=== PATIENT | female | born 1990 | race Caucasian/White ===

== ENCOUNTER 2022-06-05 19:58 | Emergency (ER) | payer MEDICAID ==
[~2022-06-05] VITALS: Ht 172.7 cm; Wt 56.7 kg
[2022-06-05 20:03] VITALS: BP_SYST 122
--- NOTE | 2022-06-05 20:09 | NUR ---
PT HERE FOR LT FACIAL PAIN AND SWELLING TODAY. PT STATED THAT SHE WAS IN THE URGENT CARE YESTERDAY FOR POSS ABSCESS ON HER LT FACE. SHE WAS SENT HOME WITH ANTIBIOTICS (KEFLEX). PT DENIES FEVER, PER PT SHE NOTICED THTA SWELLING GETTING WORST TODAY. DENIES FEVER. PMH;DENIES PT AAOX4, NO SOB NOTED AND NAD. PENDING MD MATHEW
--- NOTE | 2022-06-05 20:15 | NUR ---
MD Saravia at bedside examining pt.
[2022-06-05] MEDS ORDERED: SULF1TAB48 PO (20:26)
[2022-06-05] MEDS ORDERED: CEPH-548 PO (20:26)
[2022-06-05] MEDS ORDERED: SULFAMETHOXAZOLE/TRIMETHOPR DS 1 TABLET PO ONE (20:30)
[2022-06-05 20:38] VITALS: BP_SYST 122
--- NOTE | 2022-06-05 20:41 | NUR ---
Patient given written and verbal discharge instructions and verbalizes understanding. ER MD Saravia discussed with patient the results and treatment provided. Patient in stable condition. ID arm band removed. Rx of ATB therapy sent to pharmacy of choice. Patient educated on pain management and to follow up with PMD. Opportunity for questions provided and answered. Medication side effect fact sheet provided.
== END 2022-06-05 20:38 | disposition home or self-care (01) ==
LOC: SED 19:58
DX: L03.211 Cellulitis of face (principal); R22.0 Localized swelling, mass and lump, head; Z79.899 Other long term (current) drug therapy
CPT/HCPCS: 99283

== ENCOUNTER 2022-06-06 11:06 | Emergency (ER) | payer MEDICAID ==
[~2022-06-06] VITALS: Ht 172.7 cm; Wt 56.7 kg
[~2022-06-06 11:06] MED LIST: CEPH-548 PO; SULF1TAB48 PO
[2022-06-06 11:11] VITALS: BP_SYST 117
[2022-06-06 13:03] VITALS: BP_SYST 117
== END 2022-06-06 13:04 | disposition home or self-care (01) ==
LOC: SED 11:06
DX: H05.012 Cellulitis of left orbit (principal); R51.9 Headache, unspecified; Z79.899 Other long term (current) drug therapy
CPT/HCPCS: 99282

== ENCOUNTER 2022-10-31 07:24 | Emergency (ER) | payer MEDICAID ==
[~2022-10-31] VITALS: Ht 172.7 cm; Wt 55.8 kg
--- NOTE | 2022-10-31 07:35 | NUR ---
Patient to ER bed 05 to gown for evaluation. Side rails up. Report given to QIAN PIERCE.
--- NOTE | 2022-10-31 07:37 | NUR ---
PT CAME HERE FROM HOME, STATES SHE WAS HERE 4/3 FOR BUMP TO RIGHT EYEBROW, RX OF BACTIM GIVEN AND STARTED. PT STATES IT IS GETTING WORSE AND HER RIGHT EYE IS SWOLLEN OF THIS AM. STATES HX OF MRSA. PT IS AMBULATORY, AAOX4, VSS, DENIES VISUAL CHANGES
[2022-10-31 07:38] VITALS: BP_SYST 119
--- NOTE | 2022-10-31 07:40 | NUR ---
ER DR. SIMPSON AT THE BEDSIDE EXAMINING PT
--- NOTE | 2022-10-31 07:45 | NUR ---
Pt brought in by self from home follow up from visit 2 days ago. Chief complaint increased size of eye brow bump and new eyelid swelling to the right eye. Pt denies itchiness, complains of white discharge and throbbing pain of 4/10 pain gradient. Pt states pain was an 8/10 with relieg from OTC ibuprofen. Pt is starting 3 day of ABX Bactrim with compliance. Pt states history of MRSA on 06/19
[2022-10-31 08:02] LABS: BASOPHILS % (AUTO) 0.6 % (0.0-2.0); EOSINOPHILS # (AUTO) 0.1 K/uL (0.0-0.4); EOSINOPHILS % (AUTO) 2.5 % (0.0-4.0); HEMATOCRIT 35.6 % (36-48); LYMPHOCYTES # (AUTO) 1.1 K/uL (1.0-5.5); MEAN CORPUSCULAR HEMOGLOBIN 28 pg (27-31); MEAN CORPUSCULAR HGB CONC 34 % (32-36); MEAN CORPUSCULAR VOLUME 85 fL (79.0-98.0); MONOCYTES # (AUTO) 0.4 K/uL (0.0-1.0); MONOCYTES % (AUTO) 8.2 % (1.7-9.3); NEUTROPHILS # (AUTO) 3.2 K/uL (1.8-7.7); NEUTROPHILS % (AUTO) 66.7 % (40.0-70.0); PLATELET COUNT (AUTO) 198 K/uL (130-430); RED CELL DISTRIBUTION WIDTH 15.1 % (9.0-15.0); WHITE BLOOD COUNT (AUTO) 4.9 K/uL (4.8-10.8)
[2022-10-31 08:19] LABS: ANION GAP 9 (5-15); CALCIUM 8.5 mg/dL (8.4-11.0); CHLORIDE 102 mmol/L (98-107); CREATININE 0.69 mg/dL (0.55-1.30); GFR AFRICAN AMERICAN 127 mL/min (>90); GLUCOSE 146 mg/dL (70-99); UREA NITROGEN, BLOOD 7 mg/dL (8-21)
[2022-10-31 08:24] LABS: ALANINE AMINOTRANSFERASE 20 U/L (12-78); ASPARTATE AMINOTRANSFERASE 13 U/L (10-37); TOTAL BILIRUBIN 0.5 mg/dL (0.0-1.0)
[2022-10-31 08:34] LABS: C-REACTIVE PROTEIN QUANT < 0.2 mg/dL (0-0.5)
[2022-10-31] MEDS ORDERED: CLIN-22 PO (08:40)
--- NOTE | 2022-10-31 09:16 | NUR ---
Patient given written and verbal discharge instructions and verbalizes understanding. ER MD SIMPSON discussed with patient the results and treatment provided. Patient in stable condition. Rx of Clindamycin sentg to pharmacy on file. Patient educated on pain management and to follow up with PMD. Opportunity for questions provided and answered. Patient a&ox4, stable and walked out upon discharge.
== END 2022-10-31 09:16 | disposition home or self-care (01) ==
LOC: SED 07:24
DX: H05.011 Cellulitis of right orbit (principal); R22.0 Localized swelling, mass and lump, head; Z79.899 Other long term (current) drug therapy
CPT/HCPCS: 36415; 80053; 83605; 85025; 86140; 99283

== ENCOUNTER 2022-11-01 20:52 | Emergency (ER) | payer MEDICAID ==
[~2022-11-01] VITALS: Ht 172.7 cm; Wt 56.7 kg
[~2022-11-01 20:52] MED LIST changes: +CLIN-22 PO
[2022-11-01 21:21] VITALS: BP_SYST 108
[2022-11-01 23:17] LABS: BILIRUBIN,URINE NEGATIVE (NEGATIVE); BLOOD, URINE 1+ (NEGATIVE); COLOR,URINE YELLOW (YELLOW); GLUCOSE,URINE NEGATIVE (NEGATIVE); KETONES,URINE NEGATIVE (NEGATIVE); LEUKOCYTE ESTERASE ,URINE NEGATIVE (NEGATIVE); NITRITE, URINE NEGATIVE (NEGATIVE); PROTEIN URINE NEGATIVE (NEGATIVE); UROBILINOGEN,URINE 0.2 (0.2-1.0)
[2022-11-01 23:21] LABS: CLARITY/URINE HAZY (CLEAR)
[2022-11-01 23:29] LABS: BACTERIA,URINE None Seen /HPF (None Seen); WBC,URINE 0-3 /HPF (0-3)
[2022-11-01 23:52] LABS: BASOPHILS % (AUTO) 0.4 % (0.0-2.0); EOSINOPHILS # (AUTO) 0.2 K/uL (0.0-0.4); EOSINOPHILS % (AUTO) 2.7 % (0.0-4.0); HEMATOCRIT 34.9 % (36-48); HEMOGLOBIN 11.6 g/dL (12.0-16.0); LYMPHOCYTES # (AUTO) 1.8 K/uL (1.0-5.5); LYMPHOCYTES % (AUTO) 21.3 % (20.5-51.5); MEAN CORPUSCULAR HEMOGLOBIN 28 pg (27-31); MEAN CORPUSCULAR HGB CONC 33 % (32-36); MEAN CORPUSCULAR VOLUME 85 fL (79.0-98.0); MONOCYTES # (AUTO) 0.8 K/uL (0.0-1.0); MONOCYTES % (AUTO) 9.9 % (1.7-9.3); NEUTROPHILS # (AUTO) 5.5 K/uL (1.8-7.7); NEUTROPHILS % (AUTO) 65.7 % (40.0-70.0); PLATELET COUNT (AUTO) 244 K/uL (130-430); RED CELL DISTRIBUTION WIDTH 15.2 % (9.0-15.0); WHITE BLOOD COUNT (AUTO) 8.3 K/uL (4.8-10.8)
[2022-11-01 23:58] LABS: ERYTHROCYTE SEDIMENTATION RATE 4 MM/HR (0-20)
[2022-11-02] MEDS ORDERED: cefTRIAXone 1 GM IVPB PREMIX 50 ML IV ONE (00:15)
[2022-11-02] MEDS ORDERED: NACL 0.9% 1,000 ML IV ONE (00:15)
[2022-11-02] MEDS ORDERED: KETOROLAC TROMETHAMINE 15 MG VIAL IVP ONE ×2 (00:15→04:30)
[2022-11-02 00:23] LABS: ANION GAP 6 (5-15); CALCIUM 8.5 mg/dL (8.4-11.0); CHLORIDE 103 mmol/L (98-107); CREATININE 0.59 mg/dL (0.55-1.30); GFR AFRICAN AMERICAN 152 mL/min (>90); GLUCOSE 92 mg/dL (70-99); UREA NITROGEN, BLOOD 8 mg/dL (8-21)
[2022-11-02 00:30] LABS: ALANINE AMINOTRANSFERASE 19 U/L (12-78); ALBUMIN 3.9 g/dL (3.4-4.8); ASPARTATE AMINOTRANSFERASE 8 U/L (10-37); C-REACTIVE PROTEIN QUANT 2.7 mg/dL (0-0.5); TOTAL BILIRUBIN 0.3 mg/dL (0.0-1.0)
[2022-11-02] MEDS ORDERED: SULF1TAB48 PO (04:08)
[2022-11-02] MEDS ORDERED: ACET-2634 PO (04:08)
[2022-11-02] MEDS ORDERED: CEPH-548 PO (04:20)
[2022-11-02] MEDS ORDERED: SULFAMETHOXAZOLE/TRIMETHOPR DS 1 TABLET ONE (04:23)
[2022-11-02] MEDS ORDERED: SULFAMETHOXAZOLE/TRIMETHOPR DS 1 TABLET PO ONE (04:30)
[2022-11-02 04:44] VITALS: BP_SYST 116
== END 2022-11-02 04:44 | disposition home or self-care (01) ==
LOC: SED 20:52
DX: L02.01 Cutaneous abscess of face (principal); L03.213 Periorbital cellulitis; D64.9 Anemia, unspecified; E87.6 Hypokalemia; Z79.899 Other long term (current) drug therapy
CPT/HCPCS: 99285; 80053; 81000; 85025; 85651; 86140; 87040; 87086; 84484; 36415; 81025; 83605; 96365; 70481; 96375; 76376; 96376; J0696; J1885; Q9967